=== PATIENT | male | born 1950 | race Caucasian/White ===

== ENCOUNTER 2023-06-29 10:47 | Inpatient (IN) | payer BC ==
[~2023-06-29] VITALS: Ht 167.6 cm; Wt 76.2 kg
[2023-06-29 11:21] LABS: BASOPHILS % 0.3 % (0.0-2.0); EOSINOPHILS % 1.3 % (0.0-5.0); HEMATOCRIT. 40.1 % (42.0-52.0); HEMOGLOBIN. 14.2 g/dL (14.0-18.0); LYMPHOCYTES % 27.8 % (20.0-50.0); MEAN CORPUSCULAR HEMOGLOBIN 31.6 pg (28.0-32.0); MEAN CORPUSCULAR HGB CONC 35.3 g/dL (31.0-37.0); MEAN CORPUSCULAR VOLUME 89.6 fL (80.0-94.0); MEAN PLATELET VOLUME 8.6 fl (7.4-10.4); MONOCYTES % 5.6 % (2.0-8.0); PLATELET 143 x1000/uL (130-400); RED BLOOD CELL COUNT 4.48 mill/uL (4.7-6.1); RED CELL DISTRIBUTION WIDTH 12.6 % (11.6-14.6)
[2023-06-29] MEDS: MORPHINE SULFATE 4 MG/ML CPJ (NOT FOR IM USE) IV ONE (11:31)
[2023-06-29 11:37] LABS: ALANINE AMINOTRANSFERASE 24 IU/L (10-49); ALBUMIN 3.9 g/dL (3.2-4.8); ASPARTATE AMINOTRANSFERASE 21 IU/L (<34); BILIRUBIN TOTAL 0.7 mg/dL (0.1-1.0); CALCIUM 9.4 mg/dL (8.7-10.4); CARBON DIOXIDE 22 mEq/L (21-32); CHLORIDE 106 mEq/L (98-107); GLUCOSE 147 mg/dL (70-105); POTASSIUM 3.8 mEq/L (3.5-5.1); PROTEIN TOTAL 8.5 g/dL (6.0-8.3); SODIUM 135 mEq/L (136-145); TROPONIN I HIGH SENSITIVITY 11 ng/L (3.0-53); UREA NITROGEN BLOOD 11 mg/dL (9-23)
[2023-06-29 14:48] LABS: TROPONIN I HIGH SENSITIVITY 12 ng/L (3.0-53)
[2023-06-29 15:12] VITALS: BP 158/82; PULSE 79; RESP 18; TEMP 97.3
[2023-06-29] MEDS ORDERED: ONDANSETRON HCL 4MG/2ML INJ IV PRN (15:30)
[2023-06-29] MEDS ORDERED: IPRATROPIUM/ALBUTEROL 0.5-3(2.5)MG/3ML NEB HHN PRN (15:30)
[2023-06-29] MEDS ORDERED: ACETAMINOPHEN 325MG TABLET PO PRN (15:30)
[2023-06-29] MEDS ORDERED: HYDRALAZINE 20MG/ML VIAL IV PRN (16:00)
[2023-06-29] MEDS: LOSARTAN 50 MG TABLET PO SCH (16:48)
[2023-06-29] MEDS: ASPIRIN 81MG TABLET PO SCH (16:48)
[2023-06-29] MEDS: ENOXAPARIN 40MG/0.4ML SYR SUBCUT SCH (16:48)
[2023-06-29] MEDS: AMLODIPINE 5MG TABLET PO SCH (16:49)
[2023-06-29 20:00] VITALS: BP 137/67; PULSE 75; RESP 16; TEMP 97.8
[2023-06-29] MEDS: INSULIN LISPRO 100 UNITS/ML SUBCUT SCH (21:00)
[2023-06-29] MEDS ORDERED: DEXTROSE 50% WATER 50ML SYRINGE IV PRN (21:00)
[2023-06-29] MEDS: BLOOD SUGAR DIAGNOSTIC STRIP TEST SCH (21:25)
[2023-06-30] VITALS: BP 130/80; PULSE 69; RESP 22; TEMP 97.9
[2023-06-30 04:00] VITALS: BP 140/77; PULSE 71; RESP 15; TEMP 97.7
[2023-06-30 04:03] LABS: CREATINE KINASE 37 IU/L (46-171); CREATINE KINASE MB FRACTION 0.5 ng/mL (0.5-3.6); TROPONIN I HIGH SENSITIVITY 15 ng/L (3.0-53)
[2023-06-30 08:00] VITALS: BP 142/81; PULSE 69; RESP 15; TEMP 98.1
[2023-06-30 12:00] VITALS: BP 134/71; PULSE 71; RESP 16; TEMP 98.7
[2023-06-30 12:53] LABS: CREATINE KINASE 41 IU/L (46-171); CREATINE KINASE MB FRACTION < 0.5 ng/mL (0.5-3.6); TROPONIN I HIGH SENSITIVITY 12 ng/L (3.0-53)
[2023-06-30 16:00] VITALS: BP 131/77; PULSE 72; RESP 16; TEMP 98.5
[2023-06-30 20:00] VITALS: BP 115/54; PULSE 69; RESP 16; TEMP 98.3
[2023-07-01] VITALS: BP 134/75; PULSE 70; RESP 15; TEMP 98.8
[2023-07-01 04:00] VITALS: BP 104/54; PULSE 67; RESP 14; TEMP 98.1
[2023-07-01 08:00] VITALS: BP 124/63; PULSE 72; RESP 17; TEMP 97.4
[2023-07-01 12:00] VITALS: BP 122/65; PULSE 67; RESP 15; TEMP 97.7
[2023-07-01 13:40] LABS: ALANINE AMINOTRANSFERASE 22 IU/L (10-49); ALBUMIN 3.8 g/dL (3.2-4.8); ASPARTATE AMINOTRANSFERASE 22 IU/L (<34); BILIRUBIN TOTAL 0.6 mg/dL (0.1-1.0); CALCIUM 9.4 mg/dL (8.7-10.4); CARBON DIOXIDE 22 mEq/L (21-32); CHLORIDE 105 mEq/L (98-107); CREATININE 1.1 mg/dL (0.6-1.3); GLUCOSE 210 mg/dL (70-105); POTASSIUM 4.5 mEq/L (3.5-5.1); PROTEIN TOTAL 8.1 g/dL (6.0-8.3); SODIUM 133 mEq/L (136-145); UREA NITROGEN BLOOD 30 mg/dL (9-23)
[2023-07-01 13:59] VITALS: BP 122/65; PULSE 67; TEMP 97.7; O2SAT 97
== END 2023-07-01 14:40 | disposition home or self-care (01) | DRG 305 ==
LOC: ER 10:47 → 3WST 12:57 → EDBEDREQ 13:03
PROVIDERS: ADMIT Internal Medicine; ATTEND Internal Medicine
DX: I16.0 Hypertensive urgency (principal); R07.89 Other chest pain; E11.9 Type 2 diabetes mellitus without complications; I10 Essential (primary) hypertension; E78.00 Pure hypercholesterolemia, unspecified; I49.3 Ventricular premature depolarization; D69.6 Thrombocytopenia, unspecified; Z87.891 Personal history of nicotine dependence
CPT/HCPCS: 36415; 71045; 71275; 76705; 80053; 80061; 82550; 82553; 82962; 83036; 83880; 84484; 85025; 85379; 93005; 93306; 99285; J1650; J1815; J2270